=== PATIENT | male | born 1995 | race Caucasian/White ===

== ENCOUNTER → 2024-04-29 12:06 | Outpatient (BNVA) | payer SELFPAY | PROVIDERS: PCP Clinical Nurse Specialist Adult Health; Visit Provider Clinical Nurse Specialist Adult Health | DX: Z20.2 Contact with and (suspected) exposure to infections with a predominantly sexual mode of transmission (principal) | CPT/HCPCS: 86592; 86695; 86696; 86705; 86706; 86709; 86803; 87340; 87491; 87591; 87806 ==